=== PATIENT | male | born 1985 | race Caucasian/White ===

== ENCOUNTER 2021-10-20 14:06 | Outpatient (REF) | payer OTHER, SELFPAY ==
[2021-10-20 15:28] LABS: COVID-19 Test Negative (Negative)
== END 2021-10-20 14:07 | disposition home or self-care (01) ==
LOC: HO.LAB 14:06
PROVIDERS: Visit Provider Internal Medicine
DX: Z20.822 Contact with and (suspected) exposure to COVID-19 (principal)
CPT/HCPCS: 36415; 87635; C9803

== ENCOUNTER 2021-12-06 13:40 | Outpatient (REF) | payer OTHER, SELFPAY ==
[2021-12-06 14:30] LABS: Binax Internal Control QC Valid; Binax Now Covid-19 Ag Positive (Negative)
== END 2021-12-06 13:41 | disposition home or self-care (01) ==
LOC: HO.LAB 13:40
PROVIDERS: Visit Provider Internal Medicine
DX: Z20.822 Contact with and (suspected) exposure to COVID-19 (principal)
CPT/HCPCS: C9803

== ENCOUNTER 2022-06-23 06:06 | Emergency (ER) | payer OTHER, SELFPAY ==
[2022-06-23 06:45] VITALS: BP 123/82; PULSE 101; RESP 16; TEMP 36.8; O2SAT 94; BMI 25.7
== END 2022-06-23 09:19 | disposition left against medical advice (07) ==
PROVIDERS: Emergency Provider Emergency Medicine
DX: M25.561 Pain in right knee (principal)
CPT/HCPCS: 99281

== ENCOUNTER 2024-03-08 18:57 | Emergency (ER) | payer OTHER, SELFPAY ==
[2024-03-08 19:18] VITALS: BP 137/86; PULSE 95; RESP 18; TEMP 36.9; O2SAT 95; BMI 29.8
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
[2024-03-08 19:30] VITALS: BP 138/86; PULSE 95; RESP 16; TEMP 36.9
== END 2024-03-08 19:32 | disposition home or self-care (01) ==
PROVIDERS: Emergency Provider Internal Medicine
DX: H10.9 Unspecified conjunctivitis (principal); H57.11 Ocular pain, right eye
CPT/HCPCS: 99282; 99283

== ENCOUNTER 2024-05-03 05:46 | Emergency (ER) | payer OTHER, SELFPAY ==
[2024-05-03 05:56] VITALS: BP 129/78; PULSE 88; RESP 16; TEMP 36.6; O2SAT 96; BMI 29.5
[2024-05-03 06:46] VITALS: BP 109/82; PULSE 85; RESP 18; TEMP 36.7; O2SAT 94
--- NOTE | 2024-05-03 07:01 | ED.GENADULT ---
HPI - General Adult General Chief complaint: Dental/Oral Stated complaint: dental pain Time Seen by Provider: 05/03/24 06:33 Source: patient Mode of arrival: ambulatory Limitations: no limitations History of Present Illness ED Provider: Pankaj Huang PA-C HPI narrative: 38-year-old male with no past medical history presents to ED for right upper molar dental pain. Patient states history of poor upper molar dental decay tooth with cavities. Patient never follow-up with dentist. Patient denies any recent dental work, recent trauma, facial swelling, neck swelling, headache, ear pain, fever, or chills. Patient denies any drooling or change in voice. Patient denies any chest pain or shortness of breath Related Data Previous Rx's ?Medication ?Instructions ?Recorded levofloxacin 1.5 % eye drops 2 drp ophthalmic (eye) Q4H 7 days 03/08/24 #5 mL amoxicillin 875 mg-potassium 1 tab PO Q12H 7 days #14 tabs 05/03/24 clavulanate 125 mg tablet naproxen 500 mg tablet 500 mg PO BID PRN pain 7 days #14 05/03/24 tabs Allergies Allergy/AdvReac Type Severity Reaction Status Date / Time No Known Allergies Allergy Verified 05/03/24 05:58 [No Known Allergies*] Review of Systems Review of Systems: Right upper molar pain Yes all other systems are reviewed and are negative [facility] Social History Social History Alcohol intake: current Alcohol intake frequency: a few times a month Smoked in Last 30 Days: Yes Use of substances other than those prescribed or required for medical reasons: No Any prior treatment program specific to substance use: No Advance Directives: No Advance Directives Information Provided: No Physical Exam ED Vital Signs: Vital Signs - 24 hr 05/03/24 05:56 05/03/24 06:46 05/03/24 08:00 Temperature 97.9 F 98.0 F 97.2 F Pulse Rate 88 85 71 Respiratory Rate 16 18 16 Blood Pressure 129/78 109/82 136/80 Pulse Oximetry 96 94 94 Oxygen Delivery Method Room Air Room Air Room Air BMI result Body Mass Index 29.5 Const General: cooperative, healthy appearing, comfortable, no acute distress, well developed, alert, awake and Physically active Orientation/consciousness: oriented to time and patient oriented x3 HENMT Head: Yes normal to inspection, Yes No palpable skull fracture present, Yes normocephalic and Yes atraumatic Ears: hearing grossly normal bilaterally, external ears normal, TM's normal bilaterally, TM normal on the right, TM normal on the left, EAC's normal, mastoids normal and no periauricular adenopathy Teeth image: 1. Tooth cracked and looked decayed and is tender on palpation. Mild yellow collection. Negative for trismus. Negative for swelling or erythema. Negative for gum tenderness. Negative for signs of peritonsillar abscess Eyes Other: Negative for neck swelling. Negative for any facial swelling General: appearance normal, both eyes and all related structures Neck Neck: Yes normal visual inspection, Yes full ROM, Yes no lymphadenopathy, Yes no meningeal signs, Yes trachea midline, Yes supple, No anterior neck swelling and No tender Chest Chest palpation & inspection: normal inspection of the chest and normal palpation of entire chest wall Resp Effort & Inspection: normal respiratory effort and able to speak in complete sentences Auscultation: clear to auscultation bilaterally Cardio Jugular venous distension: no JVD Heart sounds: S1 normal heart sound present and S2 normal heart sound present GI Inspection: Yes normal to inspection Palpation (GI): Soft to palpation, not firm, nontender, no guarding and not rigid General: No CVA tenderness and Yes no CVA tenderness Back/Spine/Pelvis Back: no CVA tenderness, No CVA tenderness and No back tenderness Skin General skin exam: no rashes or lesions noted, elasticity normal and turgor normal Neuro General: oriented to time, patient oriented x3, gait normal, tone normal, moves all extremities, no meningeal signs, no focal motor deficits, CN's II-XI intact bilaterally and normal sensation to monofilament Extrem General: Yes normal to inspection, Yes full ROM and Yes capillary refill normal Psych Appearance: grossly normal, well kempt and not disheveled Medications Administered Discontinued Medications Generic Name Dose Route Start Last Admin Trade Name Freq PRN Reason Stop Dose Admin Ketorolac Tromethamine 30 mg 05/03/24 07:01 05/03/24 07:53 Ketorolac Tromethamine 30 Mg/Ml Vial IM 05/03/24 07:02 30 mg ONCE ONE Administration Medical Decision Making Medical Decision Making [facility] Narrative: 38-year-old male presents to ED for right upper molar dental pain. Patient denies any trauma, facial swelling, drooling, change in voice, neck swelling, chest pain, or shortness of breath. Exam indicates crack infected tooth. Patient will be discharged for antibiotics and pain medication. Patient will be given information for dental clinic. Patient is explained worrisome signs and informed to return to ED immediately. Not suspecting retropharyngeal abscess, Maciel angina, facial abscess, or peritonsillar abscess. Differential Diagnosis Differential Diagnoses: The differential diagnosis associated with the presentation includes (Toothache, cracked tooth, tooth infection) Admission/Observation Consideration of admission/observation: Escalation of care including admission/observation considered Independent Historian Clinical information obtained from an independent historian. History obtained from or confirmed by: Other (Patient) External Record Review External record reviewed: Other (prior visits) Prescription Management I considered prescription management with: Pain Medication and Antibiotic Discharge Plan Discharge Clinical Impression: Toothache Patient Disposition: Home, Self-Care Instructions: Toothache (ED) Additional Instructions: Return to ED immediately for any facial swelling, neck swelling, drooling, change in voice, trismus, chest pain, shortness of breath, fever, or chills, or any other concerning symptoms. You were given a list of dental clinics to call for follow-up. Prescriptions: New naproxen 500 mg tablet 500 mg PO BID PRN (Reason: pain) 7 Days Qty: 14 0RF amoxicillin-pot clavulanate 875-125 mg tablet 1 tab PO Q12H 7 Days Qty: 14 0RF No Action levofloxacin 1.5 % drops 2 drp ophthalmic (eye) Q4H 7 Days Qty: 5 0RF Rx Instructions: Day 1 & day 2: 1-2 drops into R eye every 2 hours while awake, up to 8 times daily Day 3 - day 7: 1-2 drops into R eye every 4 hours while awake, up to 4 times daily. Stand Alone Forms: Work/School Release Discharge Date/Time: 05/03/24 08:14 Print Language: Uzbek
[2024-05-03] MEDS: Ketorolac Tromethamine 30 MG/ML VIAL IM (07:53)
[2024-05-03 08:00] VITALS: BP 136/80; PULSE 71; RESP 16; TEMP 36.2; O2SAT 94
== END 2024-05-03 08:14 | disposition home or self-care (01) ==
PROVIDERS: Emergency Provider Emergency Medicine
DX: K08.89 Other specified disorders of teeth and supporting structures (principal)
CPT/HCPCS: 96372; 99284; J1885

== ENCOUNTER 2025-01-03 08:55 | Emergency (ER) | payer SELFPAY ==
[2025-01-03 09:34] VITALS: BP 129/77; PULSE 84; RESP 16; TEMP 36.6; O2SAT 98; BMI 29.6
--- NOTE | 2025-01-03 12:11 | ED.LOWEXIN ---
HPI - Extremity Injury (Lower) General Chief Complaint: Extremity Injury, Lower Stated Complaint: L knee injury Time Seen by Provider: 01/03/25 12:15 Source: patient Mode of arrival: ambulatory Limitations: no limitations History of Present Illness ED Provider: brisa ospina np HPI Narrative: Patient is a 39-year-old male who presents emergency department for evaluation. He reports 2 weeks ago he had a slip and fall on ice, was having pain to his left knee for which he was using an [id number] brace for support. He denies any pain being present at this time. 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 States that he requires a clearance note to return back to work required by his employer. He has ambulatory with a steady gait. He denies any numbness tingling or cold sensation to the extremity. Related Data Previous Rx's ?Medication ?Instructions ?Recorded levofloxacin 1.5 % eye drops 2 drp ophthalmic (eye) Q4H 7 days 03/08/24 #5 mL amoxicillin 875 mg-potassium 1 tab PO Q12H 7 days #14 tabs 05/03/24 clavulanate 125 mg tablet naproxen 500 mg tablet 500 mg PO BID PRN pain 7 days #14 05/03/24 tabs Allergies Allergy/AdvReac Type Severity Reaction Status Date / Time No Known Allergies Allergy Verified 01/03/25 09:35 [No Known Allergies*] Review of Systems Review of Systems: Yes all other systems are reviewed and are negative PMFSH Past Medical History Attestation statement: The following information was validated with the patient. Source: old records reviewed Social History Social History Alcohol intake: current Alcohol intake frequency: a few times a month Advance Directives: Yes Advance Directives Information Provided: Yes Advance Directives on File: No Do you have a plan to hurt others: No Plan Physical Exam Vital Signs: Vital Signs: Last Vital Signs Temp 98.2 F 01/03/25 12:22 Pulse 68 01/03/25 12:22 Resp 18 01/03/25 12:22 BP 124/76 01/03/25 12:22 Pulse Ox 98 01/03/25 12:22 O2 Del Method Room Air 01/03/25 12:22 BMI result Body Mass Index 29.6 Appearance: Alert.?Oriented to person, place and time. No acute distress.?Normal affect. CVS: Heart sounds normal. Normal heart rate and rhythm.? Pulses normal.?? Respiratory: No respiratory distress.? Lung sounds clear to auscultation bilaterally?? Skin: Skin warm and dry.? Normal skin color.? Extremities: No lower extremity edema.? No calf ttp?left knee without acute abnormality; no effusion, no laxity, full range of motion, 2+ DP/PT pulse Neuro: Moves all extremities spontaneously. Sensation intact bilaterally. Ambulates with normal steady gait. Medical Decision Making Medical Decision Making MDM Narrative: Patient is a 39-year-old male who presents emergency department for evaluation, mechanical slip and fall 2 weeks ago, likely had contusion versus sprain, currently with out any acute complaints full range of motion neurovascularly intact distally, no laxity. Ambulatory with a steady gait. See no reason as to why he can not return to work at this time as symptoms have resolved and he feels well to return. Provided with a return to work note Differential Diagnosis Differential Diagnoses: The differential diagnosis associated with the presentation includes (See narrative above) Tests considered The following testing was considered but not selected: Low suspicion for fracture dislocation, deferred XR, asymptomatic at this time Prescription Management I considered prescription management with: Pain Medication (Acetaminophen/ibuprofen as needed) Discharge Plan Discharge Clinical Impression: Contusion of knee, left Patient Disposition: Home, Self-Care Instructions: Contusion in Adults (ED) Prescriptions: No Action levofloxacin 1.5 % drops 2 drp ophthalmic (eye) Q4H 7 Days Qty: 5 0RF Rx Instructions: Day 1 & day 2: 1-2 drops into R eye every 2 hours while awake, up to 8 times daily Day 3 - day 7: 1-2 drops into R eye every 4 hours while awake, up to 4 times daily. naproxen 500 mg tablet 500 mg PO BID PRN (Reason: pain) 7 Days Qty: 14 0RF amoxicillin-pot clavulanate 875-125 mg tablet 1 tab PO Q12H 7 Days Qty: 14 0RF Referrals: Physician,None [Primary Care Provider] - Stand Alone Forms: Work/School Release Interventions: ED Discharge Assessment Last Done: 01/03/25 12:22 Discharge Date/Time: 01/03/25 12:22 Print Language: Serbian
[2025-01-03 12:20] VITALS: BP 124/76; PULSE 68; RESP 18; TEMP 36.8; O2SAT 98
--- NOTE | 2025-01-03 12:20 | PC.NURSE ---
pt was seen and discharged by provider
[2025-01-03 12:22] VITALS: BP 124/76; PULSE 68; RESP 18; TEMP 36.8; O2SAT 98
== END 2025-01-03 12:22 | disposition home or self-care (01) ==
PROVIDERS: Emergency Provider Emergency Medicine
DX: S80.02XA Contusion of left knee, initial encounter (principal); M25.562 Pain in left knee; W00.0XXA Fall on same level due to ice and snow, initial encounter; Y93.01 Activity, walking, marching and hiking; Y92.9 Unspecified place or not applicable; Y99.8 Other external cause status
CPT/HCPCS: 99282